=== PATIENT | female | born 1950 ===

== ENCOUNTER 2016-12-23 06:25 | Inpatient (IN) | payer MEDICARE, BC, OTHER ==
[~2016-12-23 06:25] MED LIST: Acetaminophen 500 MG Tab PO SCH; Clindamycin Phosphate in D5W 600 MG in Premix Bag 50 BAG IV SCH; Famotidine 20 MG/2 ML SDV IVPUSH SCH; Ketorolac 30 MG/ML SDV IVPUSH SCH; Ropivacaine 49.25 ML, Ketorolac 30 MG, EPINEPHrine 0.5 MG, cloNIDine 80 MCG in Sodium C... INJECT SCH; Scopolamine 1.5 MG Transdermal Patch TRDERM SCH; oxyCODONE ER 20 MG TAB.ER PO SCH
[2016-12-23] MEDS: Lactated Ringers 1,000 ML IV SCH ×3 (06:58→22:04)
[2016-12-23] MEDS ORDERED: Lidocaine 2% 5 ML SDV ONE (07:18)
[2016-12-23] MEDS ORDERED: ePHEDrine 50 MG/ML SDV ONE (07:19)
[2016-12-23] MEDS ORDERED: Propofol 200 MG/20 ML SDV ONE (07:19)
[2016-12-23] MEDS ORDERED: Ondansetron 4 MG/2 ML SDV ONE ×2 (07:19→09:08)
[2016-12-23] MEDS ORDERED: fentaNYL 100 MCG/2 ML SDV ONE (07:19)
[2016-12-23] MEDS ORDERED: Midazolam 1 MG/ML 2 ML SDV ONE (07:19)
--- NOTE | 2016-12-23 07:56 | PCM.PREANE ---
Preanesthetic Assessment - Anesthesia/Transfusion/Family Hx Anesthesia History: Prior Anesthesia Without Reaction Other Type of Anesthesia Reaction Comment: No known family hx problems Family History of Anesthesia Reaction: No Transfusion History: No Prior Transfusion(s) - Review of Systems General: No Symptoms Pulmonary: No Symptoms Cardiovascular: No Symptoms Gastrointestinal: No Symptoms Neurological: No Symptoms Other: Reports: None - Physical Assessment NPO Status Date: 12/22/16 O2 Sat by Pulse Oximetry: 96 Respiratory Rate: 16 Vital Signs: Last Vital Signs Temp 36.4 C 12/23/16 06:55 Pulse 67 12/23/16 06:55 Resp 16 12/23/16 06:55 BP 184/80 H 12/23/16 06:55 Pulse Ox 96 12/23/16 06:55 Height: 1.61 m Weight: 78.925 kg ASA Class: 2 Mental Status: Alert & Oriented x3 Airway Class: Mallampati = 2 Dentition: Reports: [place](s) (aand incisor) ROM/Head Extension: Full Lungs: Clear to Auscultation, Normal Respiratory Effort Cardiovascular: Regular Rate, Regular Rhythm - Lab Values: Laboratory Last Values POC Glucose 90 mg/dL (60-110) 12/23/16 06:49 - Allergies Allergies/Adverse Reactions: Allergies Allergy/AdvReac Type Severity Reaction Status Date / Time Penicillins Allergy Rash Verified 07/07/14 18:09 - Acknowledgements Anesthesia Type Planned: Spinal (with sedation using propofol drip) Pt an Appropriate Candidate for the Planned Anesthesia: Yes Alternatives and Risks of Anesthesia Discussed w Pt/Guardian: Yes Pt/Guardian Understands and Agrees with Anesthesia Plan: Yes Additional Comments: received: scop patch, po tylenol, iv toradol, po oxycontin, and po pepcid in pre op holding per orthopedics pre-op orders. PreAnesthesia Questionnaire HEENT History: Reports: Other (See Below) Other HEENT History: wears glasses Gastrointestinal History: Reports: Colon Polyp Genitourinary History: Reports: None CONSOLIDATOR History: Reports: Musculoskeletal History: Reports: Gout, Osteoarthritis Endocrine/Metabolic History: Reports: Hypothyroidism, Other (See Below) Other Endocrine/Metabolic History: prediabetic - Past Surgical History Head Surgeries/Procedures: Reports: None GI Surgical History: Reports: Colonoscopy Female Surgical History: Reports: Hysterectomy - SUBSTANCE USE Smoking Status *Q: Never Smoker Recreational Drug Use History: No - HOME MEDS Home Medications: Home Meds L.acidoph,Paracasei, B.lactis [Probiotic] 1 tab PO DAILY 07/07/14 [History] Multivitamin [Gummi Bear Multivitamin] 1 tab PO DAILY 07/07/14 [History] metFORMIN HCl [Metformin HCl] 1 tab PO BIDM 07/07/14 [History] Levothyroxine Sodium 88 mcg PO DAILY 12/19/16 [History] - CURRENT (IN HOUSE) MEDS Current Meds: Current Medications Acetaminophen (Tylenol Extra Strength) 1,000 mg PO ONARRIVE [facility] Last Admin: 12/23/16 07:00 Dose: 1,000 mg Famotidine (Pepcid) 40 mg IVPUSH ONARRIVE [facility] Last Admin: 12/23/16 07:01 Dose: 40 mg Ropivacaine 49.25 ml/Ketorolac Tromethamine 30 mg/Epinephrine HCl 0.5 mg/ Clonidine HCl 80 mcg/ Sodium Chloride 100 mls @ 50 mls/min INJECT ONETIME AMY Lactated Ringer's (Ringers, Lactated) 1,000 mls @ 100 mls/hr IV ASDIRECTED [facility] Last Admin: 12/23/16 06:58 Dose: 100 mls/hr Clindamycin Phosphate 600 mg/ (Premix) 50 mls @ 100 mls/hr IV ONCALL [facility] Last Admin: 12/23/16 07:20 Dose: 100 mls/hr Ketorolac Tromethamine (Toradol) 30 mg IVPUSH ONARRIVE [facility] Last Admin: 12/23/16 07:02 Dose: 30 mg Oxycodone HCl (Oxycontin) 20 mg PO ONARRIVE [facility] Last Admin: 12/23/16 06:58 Dose: 20 mg Scopolamine (Transderm-Scop) 1.5 mg TRDERM ONARRIVE [facility] Last Admin: 12/23/16 07:00 Dose: 1.5 mg Tranexamic Acid (Cyklokapron) 4,000 mg IV SEECOMMENT [facility] Discontinued Medications Ephedrine Sulfate (Ephedrine Sulfate) Confirm Administered Dose 50 mg .ROUTE .STK-MED ONE Stop: 12/23/16 07:20 Fentanyl (Sublimaze) Confirm Administered Dose 100 mcg .ROUTE .STK-MED ONE Stop: 12/23/16 07:20 Lidocaine (Xylocaine-Mpf 2%) Confirm Administered Dose 10 ml .ROUTE .STK-MED ONE Stop: 12/23/16 07:19 Midazolam HCl (Versed 1 Mg/Ml) Confirm Administered Dose 2 mg .ROUTE .STK-MED ONE Stop: 12/23/16 07:20 Ondansetron HCl (Zofran) Confirm Administered Dose 4 mg .ROUTE .STK-MED ONE Stop: 12/23/16 07:20 Propofol (Diprivan 20 Ml) Confirm Administered Dose 400 mg .ROUTE .STK-MED ONE Stop: 12/23/16 07:20 Tranexamic Acid (Cyklokapron) Confirm Administered Dose 4,000 mg .ROUTE .STK- MED ONE Stop: 12/23/16 07:12
[2016-12-23] MEDS ORDERED: fentaNYL 100 MCG/2 ML SDV IVPUSH PRN (09:05)
--- NOTE | 2016-12-23 09:48 | PCM.OPNOTE ---
- General Post-Op/Procedure Note Date of Surgery/Procedure: 12/23/16 Operative Procedure(s): L TKA Post-Op Diagnosis: DJD L knee Anesthesia Technique: Moderate Sedation, Spinal Primary Surgeon: Cortney Manriquez Screen Printer Helper: Lianna Robb Screen Printer Helper: Erasmo Garza in mLs: 50 Condition: Good Free Text/Narrative:: tt=47 min #[id number]
[2016-12-23] MEDS ORDERED: diphenhydrAMINE 25 MG Cap PO PRN (09:52)
[2016-12-23] MEDS ORDERED: Morphine 4 MG/ML Syringe IVPUSH PRN (09:52)
[2016-12-23] MEDS ORDERED: Ondansetron 4 MG/2 ML SDV IV PRN (09:52)
[2016-12-23] MEDS ORDERED: oxyCODONE 5 MG Tab PO PRN (09:52)
[2016-12-23] MEDS ORDERED: Bisacodyl 10 MG Supp RECTAL PRN (09:52)
[2016-12-23] MEDS ORDERED: Aluminum Hydroxide/Magnesium Hydroxide/Simethicone Susp 30 ML Cup PO PRN (09:52)
[2016-12-23] MEDS ORDERED: Ketorolac 30 MG/ML SDV IVPUSH SCH (10:00)
[2016-12-23] MEDS ORDERED: Acetaminophen 500 MG Tab PO SCH (10:00)
--- NOTE | 2016-12-23 10:41 | PCM.POSTAN ---
POST ANESTHESIA ASSESSMENT - MENTAL STATUS Mental Status: Alert, Oriented - RESPIRATORY Respiratory Status: Respiratory Rate WNL, Airway Patent, O2 Saturation Stable - CARDIOVASCULAR CV Status: Pulse Rate WNL, Blood Pressure Stable - GASTROINTESTINAL GI Status: No Symptoms - PAIN Pain Score: 0 - POST OP HYDRATION Hydration Status: Adequate & Stable
[2016-12-23] MEDS: Acetaminophen 500 MG Tab PO SCH ×3 (12:04→18:26)
[2016-12-23] MEDS: Ketorolac 15 MG/ML SDV IVPUSH SCH ×2 (13:13→18:27)
--- NOTE | 2016-12-23 13:22 | OR ---
SURGEON: Cortney Manriquez MD DATE OF PROCEDURE: 12/23/2016 PREOPERATIVE DIAGNOSIS: Degenerative joint disease, left knee, tricompartmental. POSTOPERATIVE DIAGNOSIS: Degenerative joint disease, left knee, tricompartmental. PROCEDURE: Left total knee arthroplasty using patient-specific instrumentation. ASSISTANTS: 1. Lianna Robb PA-C. 2. Erasmo Garza, PGY II. ANESTHESIA: Spinal with sedation. ESTIMATED BLOOD LOSS: 50 mL. TOURNIQUET TIME: 47 minutes. COMPLICATIONS: None. DVT PROPHYLAXIS: PAS boot and OSITO hose to the nonoperative leg. IMPLANTS USED: Kassandra Persona femoral component size 6 (LPS), tibial component size D, 11 mm all-polyethylene articular surface, and 29 mm all-polyethylene patella. INTRAOPERATIVE FINDINGS: Showed severe tricompartmental degenerative changes with osteophyte formation. No significant synovitis was noted. Bone quality appeared normal. BRIEF HISTORY: Gabrielle is a 66-year-old female, who has had complaint of progressive left knee pain. She had tried conservative treatment, which had not given her lasting relief. At that time, I recommended she undergo surgical intervention. The risks and goals of the procedure were discussed with the patient and were documented preoperatively. She agreed to proceed. DESCRIPTION OF PROCEDURE: The patient was properly identified and brought to the operating room. The patient was then transferred from the operating room cart and placed on the operating table in a supine position. Anesthesia was administered by the anesthesia staff. After adequate anesthesia was obtained, a well-padded tourniquet was applied to the surgical lower extremity. Browne catheter was placed. The lower extremity was then prepped in standard fashion using ChloraPrep solution. It was then sterilely draped. A time-out was performed to ensure correct site and procedure. Preoperative antibiotics were given along with one gram of tranexamic acid IV. The surgical site had been marked preoperatively. An Esmarch was used to exsanguinate the right lower extremity and the tourniquet was inflated. An incision was made over the anterior aspect of the knee. The subcutaneous tissues were dissected down to the level of the fascia. A medial parapatellar approach to the knee was made. A portion of the infrapatellar fat pad was then excised. The distal femur was then exposed. The femoral patient-specific cutting guide was then placed. Pins were also placed. The distal femoral cutting block was placed and the distal femoral cut was made. Instrumentation was then removed. Both Whitesides' line and the epicondylar axis were then marked with electrocautery. The 4-in-1 cutting block was placed. This was placed in a slightly externally rotated position, which corresponded well with the previously drawn lines. The cutting guide was then pinned into position. An Talon wing guide was used to check the depth of resection of our anterior condylar cut and it was felt that no notching would occur. The anterior condylar cut was then made followed by the posterior condylar cut. Both the posterior chamfer and anterior chamfer cuts were then made. The cutting block was then removed along with the excess bony remnants. We then turned our attention to the tibia. The anterior cruciate ligament and posterior cruciate ligament were released and a posterior cruciate ligament retractor was placed to allow the tibia to be pulled anteriorly. The tibial patient-specific guide was then placed on the proximal tibia. This fit anatomically. The pins were then placed. The proximal tibia cutting guide was then placed and screwed into position. The proximal tibial resection was then made with care being taken to protect the patellar tendon. The bony resection was then removed. The remainder of the medial and lateral meniscus were then excised. Care was taken to protect the popliteus tendon. The tibia was then sized to the appropriate size. The distal femur was then elevated. The posterior capsule was stripped off the distal femur both medially and laterally. The posterior capsule along with the medial and lateral gutters were then injected with a standard mixture consisting of clonidine, epinephrine, Toradol, and Ropivacaine, unless any allergies were found preoperatively. The femoral component was then placed onto the distal femur in a slightly lateral position. This fit the femur well. A box cut was then made without difficulty. This was then removed. The tibial trial along with the polyethylene liner was then placed. The knee came easily into full extension and was stable to varus and valgus stressing both in full extension and flexion. Any additional releases were performed at this time. We then returned our attention to the patella. The patella was everted and towel clamps were used to hold the patella in position. It was resected to a 15 millimeter thickness. It was then sized to the appropriate size. It was prepared in the usual fashion after placing the predetermined size clamps. This was placed in a slightly superior and medial position. The clamp was then removed. The patellar trial button was placed. The knee was taken through a range of motion using the no-touch technique. The patella tracked centrally. A drop kirstin was then placed to check alignment. All instruments were then removed from the knee. The tibial sizer was then placed on the tibia. The tibia was prepared in the usual fashion using the reamer and broach. This was then removed. All bony surfaces were copiously irrigated with Pulsavac solution. They were then suctioned dry. Cement was prepared on the back table in the usual manner. Once it was prepared, the bone ends were again suctioned dry. The tibia was cemented into place first. This was malleted into position. Excess cement was then cleared. The femur was then placed in a similar manner. We placed the polyethylene trial into place and the knee was brought into full extension. An axial load was placed while keeping the knee in full extension. The patella button was also cemented into position and the clamp was used to hold this in place as the cement was allowed to cure. The wound was again copiously irrigated with saline solution using a Pulsavac medical assisting instructor. Following this 1 g of tranexamic acid was applied to the wound topically. After we had adequate curing of the cement, the knee was again taken through a range of motion. The size of the polyethylene was then determined. The polyethylene trial was then removed. The tibial tray was suctioned to make sure there was no remaining soft tissue or cement. Excess cement was cleared from around the edges of the prosthesis as well. The tourniquet was then deflated. We were able to observe for any excess bleeding and none was noted. Electrocautery was used to maintain hemostasis. An additional gram of tranexamic acid was given IV. The retractors were again placed and the predetermined polyethylene was then placed. This was locked into position without difficulty. The knee was again taken through a range of motion with no change from the prior exam. The fascial layer was closed with Number One Vicryl. The subcutaneous tissues were closed with 2-0 Vicryl. The skin was closed with chuckie. Xeroform gauze was placed over the wound and a bulky dressing was applied. The patient was then awakened from anesthesia and transferred back to the operating room cart. They were brought to the recovery room in stable condition. All needle and sponge counts were correct. ALYSHA / BRANDIE /[id number]
--- NOTE | 2016-12-23 15:16 | CR ---
EXAMINATION: Left knee HISTORY: Surgery COMPARISON: 10/23/2016 TECHNIQUE: 2 views FINDINGS/IMPRESSION: Operative control films demonstrate left total knee hardware in good position an d alignment. Operative soft tissue changes noted.
[2016-12-23] MEDS: Clindamycin Phosphate in D5W 600 MG in Premix Bag 50 BAG IV SCH ×2 (16:11)
--- NOTE | 2016-12-23 18:14 | PCM48HPAN ---
Post Anesthesia Note - EVALUATION WITHIN 48HRS OF ANESTHETIC Vital Signs in Normal Range: Yes Patient Participated in Evaluation: Yes Respiratory Function Stable: Yes Airway Patent: Yes Cardiovascular Function Stable: Yes Hydration Status Stable: Yes Pain Control Satisfactory: Yes Nausea and Vomiting Control Satisfactory: Yes Mental Status Recovered: Yes
[2016-12-23] MEDS: Docusate Sodium 100 MG Cap PO SCH (20:17)
[2016-12-23] MEDS: oxyCODONE ER 20 MG TAB.ER PO SCH (20:18)
[2016-12-24] MEDS: Clindamycin Phosphate in D5W 600 MG in Premix Bag 50 BAG IV SCH ×2 (00:11)
[2016-12-24] MEDS: Acetaminophen 500 MG Tab PO SCH ×3 (00:11→11:46)
[2016-12-24] MEDS: Ketorolac 15 MG/ML SDV IVPUSH SCH ×2 (00:13→06:30)
[2016-12-24] MEDS ORDERED: Levothyroxine 88 MCG Tab PO SCH (07:30)
[2016-12-24] MEDS ORDERED: Sodium Chloride 0.9% 2.5 ML Syringe FLUSH PRN (07:54)
[2016-12-24] MEDS ORDERED: Sodium Chloride 0.9% 10 ML Syringe FLUSH PRN (07:54)
--- NOTE | 2016-12-24 07:54 | PCM.SURGPN ---
- General Info Date of Service: 12/24/16 Date of Surgery/Procedure: 12/23/16 POD#: 1 Functional Status: Reports: Pain Controlled, Tolerating Diet, Ambulating, Urinating - Review of Systems General: Reports: No Symptoms Pulmonary: Reports: No Symptoms Cardiovascular: Reports: No Symptoms Gastrointestinal: Reports: No Symptoms Genitourinary: Reports: No Symptoms Musculoskeletal: Reports: Leg Pain, Joint Pain, Joint Swelling Neurological: Reports: No Symptoms Psychiatric: Reports: No Symptoms - Patient Data Vitals - Most Recent: Last Vital Signs Temp 36.3 C 12/24/16 04:00 Pulse 78 12/24/16 04:00 Resp 16 12/24/16 04:00 BP 133/78 12/24/16 04:00 Pulse Ox 96 12/24/16 04:00 Weight - Most Recent: 78.925 kg I&O - Last 24 Hours: Intake & Output 12/23/16 12/24/16 12/24/16 22:59 06:59 14:59 Intake Total 2141 1450 Output Total 325 700 Balance 1816 750 Lab Results Last 24 Hrs: Laboratory Results - last 24 hr 12/23/16 12/23/16 12/23/16 Range/Units 07:14 13:25 18:45 Hgb (12.0-16.0) g/dL Hct (36.0-46.0) % POC Glucose 89 143 H (60-110) mg/dL Blood Type O POSITIVE Antibody Screen NEGATIVE 12/23/16 12/24/16 12/24/16 Range/Units 20:22 06:34 06:58 Hgb 11.1 L (12.0-16.0) g/dL Hct 33.9 L (36.0-46.0) % POC Glucose 115 H 89 (60-110) mg/dL Blood Type Antibody Screen Med Orders - Current: Current Medications Acetaminophen (Tylenol Extra Strength) 1,000 mg PO Q6H [facility] Last Admin: 12/24/16 06:29 Dose: 1,000 mg Acidophilus/Pectin (Acidophilus/Pectin, Edmonson) 1 tab PO DAILY [facility] Al Hydroxide/Mg Hydroxide (Mag-Al Plus) 30 ml PO Q4H PRN PRN Reason: indigestion Aspirin (Aspirin) 325 mg PO BID [facility] Bisacodyl (Dulcolax) 10 mg RECTAL DAILY PRN PRN Reason: Constipation Celecoxib (Celebrex) 200 mg PO DAILY [facility] Diphenhydramine HCl (Benadryl) 25 - 50 mg PO Q6H PRN PRN Reason: Itching Last Admin: 12/24/16 03:39 Dose: 25 mg Docusate Sodium (Colace) 100 mg PO BID [facility] Last Admin: 12/23/16 20:17 Dose: 100 mg Lactated Ringer's (Ringers, Lactated) 1,000 mls @ 100 mls/hr IV ASDIRECTED [facility] Last Admin: 12/23/16 22:04 Dose: 100 mls/hr Levothyroxine Sodium (Synthroid) 88 mcg PO ACBREAKFAST [facility] Last Admin: 12/24/16 06:29 Dose: 88 mcg Metformin HCl (Glucophage) 500 mg PO BIDM [facility] Morphine Sulfate (Morphine) 1 - 3 mg IVPUSH Q3H PRN PRN Reason: Pain Last Admin: 12/24/16 03:39 Dose: 2 mg Multivitamins/Minerals (Thera M Plus) 1 tab PO DAILY [facility] Ondansetron HCl (Zofran) 4 mg IV Q6HR PRN PRN Reason: NAUSEA/VOMITING Oxycodone HCl (Oxycodone) 5 - 10 mg PO Q4H PRN PRN Reason: Pain Last Admin: 12/23/16 14:40 Dose: 10 mg Oxycodone HCl (Oxycontin) 20 mg PO Q12HR [facility] Last Admin: 12/23/16 20:18 Dose: 20 mg Scopolamine (Transderm-Scop) 1.5 mg TRDERM ONARRIVE [facility] Last Admin: 12/23/16 07:00 Dose: 1.5 mg Discontinued Medications Acetaminophen (Tylenol Extra Strength) 1,000 mg PO ONARRIVE [facility] Last Admin: 12/23/16 07:00 Dose: 1,000 mg Acetaminophen (Tylenol Extra Strength) 1,000 mg PO Q6H [facility] Ephedrine Sulfate (Ephedrine Sulfate) Confirm Administered Dose 50 mg .ROUTE .STK-MED ONE Stop: 12/23/16 07:20 Famotidine (Pepcid) 40 mg IVPUSH ONARRIVE [facility] Last Admin: 12/23/16 07:01 Dose: 40 mg Fentanyl (Sublimaze) Confirm Administered Dose 100 mcg .ROUTE .STK-MED ONE Stop: 12/23/16 07:20 Fentanyl (Sublimaze) 50 mcg IVPUSH Q5M PRN PRN Reason: Pain (severe 7-10) Stop: 12/24/16 09:05 Ropivacaine 49.25 ml/Ketorolac Tromethamine 30 mg/Epinephrine HCl 0.5 mg/ Clonidine HCl 80 mcg/ Sodium Chloride 100 mls @ 50 mls/min INJECT ONETIME [facility] Clindamycin Phosphate 600 mg/ (Premix) 50 mls @ 100 mls/hr IV ONCALL [facility] Last Admin: 12/23/16 07:20 Dose: 100 mls/hr Clindamycin Phosphate 600 mg/ (Premix) 50 mls @ 100 mls/hr IV Q8H [facility] Stop: 12/24/16 00:29 Last Admin: 12/24/16 00:11 Dose: 100 mls/hr Ketorolac Tromethamine (Toradol) 30 mg IVPUSH ONARRIVE [facility] Last Admin: 12/23/16 07:02 Dose: 30 mg Ketorolac Tromethamine (Toradol) 30 mg IVPUSH Q6H [facility] Stop: 12/24/16 09:00 Ketorolac Tromethamine (Toradol) 15 mg IVPUSH Q6H [facility] Stop: 12/24/16 07:01 Last Admin: 12/24/16 06:30 Dose: 15 mg Lidocaine (Xylocaine-Mpf 2%) Confirm Administered Dose 10 ml .ROUTE .STK-MED ONE Stop: 12/23/16 07:19 Midazolam HCl (Versed 1 Mg/Ml) Confirm Administered Dose 2 mg .ROUTE .STK-MED ONE Stop: 12/23/16 07:20 Ondansetron HCl (Zofran) Confirm Administered Dose 4 mg .ROUTE .STK-MED ONE Stop: 12/23/16 07:20 Ondansetron HCl (Zofran) Confirm Administered Dose 4 mg .ROUTE .STK-MED ONE Stop: 12/23/16 09:09 Oxycodone HCl (Oxycontin) 20 mg PO ONARRIVE [facility] Last Admin: 12/23/16 06:58 Dose: 20 mg Propofol (Diprivan 20 Ml) Confirm Administered Dose 400 mg .ROUTE .STK-MED ONE Stop: 12/23/16 07:20 Tranexamic Acid (Cyklokapron) 4,000 mg IV SEECOMMENT [facility] Tranexamic Acid (Cyklokapron) Confirm Administered Dose 4,000 mg .ROUTE .STK- MED ONE Stop: 12/23/16 07:12 - Exam Wound/Incisions: Dressing Dry and Intact General: Alert, Oriented HEENT: Pupils Equal, Pupils Reactive Neck: Trachea Midline Lungs: Normal Respiratory Effort Cardiovascular: Regular Rate Extremities: Other (Left anterior tibialis, extensor hallucis longus and gastrocnemius strength +5/5 bilaterally. Sensation intact. Dorsalis pedis and posterior tibial pulses +2 bilaterally. ) Neurological: No New Focal Deficit Psy/Mental Status: Alert, Normal Affect, Normal Mood - Problem List Review Problem List Initiated/Reviewed/Updated: Yes - My Orders Last 24 Hours: Active Orders 24 hr Category Date Time Status Patient Status [ADT] Routine ADT 12/23/16 09:44 Active Activity as Tolerated [RC] .Routine Care 12/23/16 09:52 Active Intake and Output [RC] Q12H Care 12/23/16 09:51 Active Neurovascular Check [RC] Q2HR Care 12/23/16 09:51 Active Notify Provider Vital Signs [RC] ASDIRECTED Care 12/23/16 09:52 Active RT Incentive Spirometry [RC] ASDIRECTED Care 12/23/16 09:52 Active Vital Signs [RC] Q4H Care 12/23/16 09:51 Active PT Evaluation and Treatment [CONS] Routine Cons 12/23/16 09:51 Active HEMOGLOBIN/HEMATOCRIT,HH [HEME] DAILY Lab 12/25/16 07:00 Ordered HEMOGLOBIN/HEMATOCRIT,HH [HEME] DAILY Lab 12/26/16 07:00 Ordered Acetaminophen [Tylenol Extra Strength] Med 12/23/16 12:00 Active 1,000 mg PO Q6H Acidophilus/Pectin, Edmonson Med 12/24/16 09:00 Active 1 tab PO DAILY Alum Hydrox/Mag Hydrox/Simeth [Mag-Al Plus] Med 12/23/16 09:52 Active 30 ml PO Q4H PRN Aspirin Med 12/24/16 09:00 Active 325 mg PO BID Bisacodyl [Dulcolax] Med 12/23/16 09:52 Active 10 mg RECTAL DAILY PRN Celecoxib [CeleBREX] Med 12/24/16 09:00 Active 200 mg PO DAILY Docusate Sodium [Colace] Med 12/23/16 21:00 Active 100 mg PO BID Levothyroxine [Synthroid] Med 12/24/16 07:30 Active 88 mcg PO ACBREAKFAST Morphine Med 12/23/16 09:52 Active 1 - 3 mg IVPUSH Q3H PRN Multivitamins w-Iron/Ca/FA/Min [Thera M Plus] Med 12/24/16 09:00 Active 1 tab PO DAILY Ondansetron [Zofran] Med 12/23/16 09:52 Active 4 mg IV Q6HR PRN diphenhydrAMINE [Benadryl] Med 12/23/16 09:52 Active 25 - 50 mg PO Q6H PRN metFORMIN [Glucophage] Med 12/24/16 08:00 Active 500 mg PO BIDM oxyCODONE Med 12/23/16 09:52 Active 5 - 10 mg PO Q4H PRN oxyCODONE ER [OxyCONTIN] Med 12/23/16 21:00 Active 20 mg PO Q12HR Medication Orders Acetaminophen (Tylenol Extra Strength) 1,000 mg PO Q6H [facility] Last Admin: 12/24/16 06:29 Dose: 1,000 mg Admin: 12/24/16 00:11 Dose: 1,000 mg Admin: 12/23/16 18:26 Dose: 1,000 mg Admin: 12/23/16 12:04 Dose: 1,000 mg Acidophilus/Pectin (Acidophilus/Pectin, Edmonson) 1 tab PO DAILY [facility] Al Hydroxide/Mg Hydroxide (Mag-Al Plus) 30 ml PO Q4H PRN PRN Reason: indigestion Aspirin (Aspirin) 325 mg PO BID [facility] Bisacodyl (Dulcolax) 10 mg RECTAL DAILY PRN PRN Reason: Constipation Celecoxib (Celebrex) 200 mg PO DAILY [facility] Diphenhydramine HCl (Benadryl) 25 - 50 mg PO Q6H PRN PRN Reason: Itching Last Admin: 12/24/16 03:39 Dose: 25 mg Docusate Sodium (Colace) 100 mg PO BID [facility] Last Admin: 12/23/16 20:17 Dose: 100 mg Lactated Ringer's (Ringers, Lactated) 1,000 mls @ 100 mls/hr IV ASDIRECTED [facility] Last Admin: 12/23/16 22:04 Dose: 100 mls/hr Infusion: 12/23/16 21:15 Dose: 100 mls/hr Admin: 12/23/16 11:15 Dose: 100 mls/hr Infusion: 12/23/16 11:15 Dose: 100 mls/hr Admin: 12/23/16 06:58 Dose: 100 mls/hr Levothyroxine Sodium (Synthroid) 88 mcg PO ACBREAKFAST [facility] Last Admin: 12/24/16 06:29 Dose: 88 mcg Metformin HCl (Glucophage) 500 mg PO BIDM [facility] Morphine Sulfate (Morphine) 1 - 3 mg IVPUSH Q3H PRN PRN Reason: Pain Last Admin: 12/24/16 03:39 Dose: 2 mg Multivitamins/Minerals (Thera M Plus) 1 tab PO DAILY [facility] Ondansetron HCl (Zofran) 4 mg IV Q6HR PRN PRN Reason: NAUSEA/VOMITING Oxycodone HCl (Oxycodone) 5 - 10 mg PO Q4H PRN PRN Reason: Pain Last Admin: 12/23/16 14:40 Dose: 10 mg Oxycodone HCl (Oxycontin) 20 mg PO Q12HR [facility] Last Admin: 12/23/16 20:18 Dose: 20 mg Scopolamine (Transderm-Scop) 1.5 mg TRDERM ONARRIVE [facility] Last Admin: 12/23/16 07:00 Dose: 1.5 mg - Assessment Assessment (Free Text/Narrative):: Patient up to chair this AM. Tolerating diet. Pain well controlled overnight. Ambulating. UO 1435 mL. Hgb 11.1. - Plan Plan (Free Text/Narrative):: Continue pain management. Continue PT. Encourage PO fluid intake. Start Aspirin 325 mg PO BID for DVT prophylaxis. Possible discharge home this afternoon.
[2016-12-24] MEDS ORDERED: metFORMIN 500 MG Tab PO SCH (08:00)
[2016-12-24] MEDS: oxyCODONE ER 20 MG TAB.ER PO SCH (08:39)
[2016-12-24] MEDS: Docusate Sodium 100 MG Cap PO SCH (08:40)
[2016-12-24] MEDS ORDERED: Multivitamins with Iron/Calcium/Folic Acid/Minerals Tab PO SCH (09:00)
[2016-12-24] MEDS ORDERED: Celecoxib 100 MG Cap PO SCH (09:00)
[2016-12-24] MEDS ORDERED: Acidophilus with Citrus Pectin Tab PO SCH (09:00)
[2016-12-24] MEDS ORDERED: Aspirin 325 MG Tab PO SCH (09:00)
[2016-12-24 12:10] VITALS: BP 139/54
--- NOTE | 2016-12-24 16:58 | PCM.SN ---
- Free Text/Narrative Note: Discharge summary Dressing was changed prior to discharge. See discharge plan for complete list of discharge medications and instructions. Dictation #: [id number]
--- NOTE | 2016-12-25 05:10 | DISCH ---
DATE OF DISCHARGE: 12/24/2016 PRIMARY CARE PHYSICIAN: Hosea Kc M.D. ADMITTING DIAGNOSIS: Degenerative joint disease, left knee, tricompartmental. OTHER MEDICAL DIAGNOSIS: Hypothyroidism. DISCHARGE DIAGNOSES: 1. Status post left total knee arthroplasty. 2. Hypothyroidism. BRIEF HISTORY: Gabrielle is a 66-year-old female with a complaint of progressive left knee pain. She has tried conservative treatment which has not given her lasting relief. At that time, surgical intervention was recommended. Operation is a left total knee arthroplasty. HOSPITAL COURSE: Pain was controlled with a combination of p.o. and IV pain medications. The patient did receive 2 doses of clindamycin postoperatively for 24 hours of antibiotic coverage. The patient was followed by Physical Therapy during her hospital stay. Upon discharge, her vital signs were stable, and she was afebrile. Hemoglobin on the day of discharge was 11.1. Aspirin 325 mg was started on postop day #1 for DVT prophylaxis. Pain is currently controlled with oral pain medications only. She is tolerating oral intake and ambulating with wheeled walker. She feels comfortable with discharge to home today. DISCHARGE MEDICATIONS: 1. Oxycodone 5 mg. 2. OxyContin 20 mg. 3. Aspirin 325 mg. 4. Colace 100 mg. 5. Celebrex 200 mg. 6. Tylenol 500 mg. DISCHARGE INSTRUCTIONS: 1. The patient will follow up in the clinic. This appointment is made for the patient. 2. Outpatient physical therapy 2 to 3 times per week for 4 to 6 weeks. 3. Polar Care to the left knee. 4. OSITO hose to the left lower extremity, on in the morning and off in the evening. For a complete medication reconciliation and discharge instructions, please refer to the patient's EHR. If the patient has questions or concerns prior to followup, she may call the clinic. ESMER DIEGO /[id number]
== END 2016-12-24 14:45 | disposition home or self-care (01) | DRG 470 ==
LOC: MW.MS 06:25
PROVIDERS: ADMIT Orthopaedic Surgery; ATTEND Orthopaedic Surgery
PROC: 0SRD0J9 Replacement of Left Knee Joint with Synthetic Substitute, Cemented, Open Approach (ICD-10-PCS; principal; 2016-12-23)
DX: M17.12 Unilateral primary osteoarthritis, left knee (principal); M25.762 Osteophyte, left knee; E03.9 Hypothyroidism, unspecified; Z88.0 Allergy status to penicillin; Z79.899 Other long term (current) drug therapy
CPT/HCPCS: 01402; 36415; 73560-26-LT; 73560-LT; 82962; 85014; 85018; 86850; 86900; 86901; 88304; 97110-GP; 97116-GP; 97161-GP; A9270-GY; C1713; C1776; J0171; J0735; J1885; J2250; J2270; J2405; J2704; J2795; J3010; J7050; J7120